=== PATIENT | male | born 1985 | race Caucasian/White ===

== ENCOUNTER 2016-08-29 01:38 | Emergency (ER) | payer SELFPAY ==
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
--- NOTE | 2016-08-29 03:59 | ED MAR SUMMARY ---
..... Medication Administration Record [facility] [address] [place], [place] [id number] Patient: FELA HUNT Visit ID: [id number] 30y, M Weight: 90.7 kg Height/Length: 73 in BMI: 26.4 ALLERGIES: Amoxicillin
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
--- NOTE | 2016-08-29 03:59 | ED MED RECONCILIATION SUMMARY ---
Patient: FELA HUNT Medication Reconciliation Report [facility] VisitID: [id number] [address] [place] [address] 30y, M Registration Date/Time: 08/29/2016 Weight: 90.7 kg Height/Length: 73 in. BMI: 26.4 ALLERGIES: Amoxicillin The patient's Home Medications are listed below: NONE. The source(s) of the original Home Medication information: Not obtained. The following Medications were given to the patient in the Emergency Department: None. The following Medications were prescribed to the patient: None.
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
--- NOTE | 2016-08-29 03:59 | ED MAR SUMMARY ---
..... Medication Administration Record [facility] [address] [place], [place] [id number] Patient: FELA HUNT Visit ID: [id number] 30y, M Weight: 90.7 kg Height/Length: 73 in BMI: 26.4 ALLERGIES: Amoxicillin
--- NOTE | 2016-08-29 03:59 | ED MED RECONCILIATION SUMMARY ---
Patient: FELA HUNT Medication Reconciliation Report [facility] VisitID: [id number] [address] [place] [place] [address] 30y, M Registration Date/Time: 08/29/2016 Weight: 90.7 kg Height/Length: 73 in. BMI: 26.4 ALLERGIES: Amoxicillin The patient's Home Medications are listed below: NONE. The source(s) of the original Home Medication information: Not obtained. The following Medications were given to the patient in the Emergency Department: None. The following Medications were prescribed to the patient: None.
== END 2016-08-29 02:15 ==
LOC: ED SRH 01:38
DX: Z04.1 Encounter for examination and observation following transport accident (principal); F17.210 Nicotine dependence, cigarettes, uncomplicated; F12.10 Cannabis abuse, uncomplicated; V43.52XA Car driver injured in collision with other type car in traffic accident, initial encounter; Y93.89 Activity, other specified; Y92.410 Unspecified street and highway as the place of occurrence of the external cause; Y99.9 Unspecified external cause status; Z88.1 Allergy status to other antibiotic agents